=== PATIENT | male | born 1940 | race African-American/Black ===

== ENCOUNTER 2016-10-28 21:07 | Emergency (ER) | payer MEDICARE, OTHER ==
[~2016-10-28 21:07] MED LIST: 1-ME1LIQ PO; HYDR-3533 PO; MEDR4PAK3 PO
[2016-10-28 21:15] VITALS: BP 173/82; PULSE 92; RESP 16; TEMP 98; O2SAT 95
[2016-10-28] MEDS ORDERED: HYDROmorphone HCL PF 1 MG/ML VIAL IV PUSH ONE (21:30)
[2016-10-28] MEDS ORDERED: KETOROLAC TROMETHAMINE 30 MG/ML (IVP) VIAL IV PUSH ONE (21:30)
--- NOTE | 2016-10-28 21:36 | PD ---
HPI Chief Complaint: low back pain Time Seen by Provider: 21:11 Travel History International Travel<30 days: No Contact w/Intl Traveler<30days: No History of Present Illness HPI This is a 75-year-old male who presents to the emergency department with low back pain that's been present for 10 days, constant, severe, radiating down both legs, worse in his right leg, associated with difficulty walking. He says he hasn't been able to walk for 10 days and is only been able to shuffle. Likely has a friend in from out of town he's been helping him get around the house. He denies any urinary or bowel incontinence and has no numbness. Not had any recent injuries. He's been taking Vicoprofen and Tylenol but it's not helping. [facility] Past Medical History Hypertension: Yes Past Surgical History Genitourinary Surgery: Yes (donor nephrectomy) Social History Alcohol Use: No Tobacco Use: No Substance Use: No Allergies-Medications (Allergen,Severity, Reaction): Coded Allergies: No Known Allergies (Unverified , 10/28/16) Reported Meds & Prescriptions Reported Meds & Active Scripts Active Reported Amlodipine (Amlodipine Besylate) 10 Mg Tab 10 Mg PO DAILY Allopurinol 100 Mg Tab 100 Mg PO DAILY Review of Systems Except as stated in HPI: all other systems reviewed are Neg Physical Exam Narrative GENERAL:Well appearing, no acute distress SKIN: Warm and dry. HEAD: Atraumatic. Normocephalic. EYES: Pupils equal and round. No injection or drainage. ENT: Moist mucous membranes NECK: Trachea midline. CARDIOVASCULAR: Regular rate and rhythm. No murmur appreciated. RESPIRATORY: Clear to auscultation. Breath sounds equal bilaterally. GASTROINTESTINAL: Abdomen soft, non-tender, nondistended. MUSCULOSKELETAL: No obvious deformities. No focal lumbar tenderness NEUROLOGICAL: Awake and alert. No obvious cranial nerve deficits. 5 out of 5 strength in the bilateral lower extremities. Sensation is grossly intact. 2+ patellar and bilateral Achilles reflexes. Normal rectal tone. PSYCHIATRIC: Appropriate mood and affect; insight and judgment normal. Data Data Last Documented VS Vital Signs Date Time Temp Pulse Resp B/P Pulse Ox O2 Delivery O2 Flow Rate FiO2 10/28/16 21:15 98.0 92 16 173/82 95 Orders Complete Blood Count With Diff (10/28/16 21:18) Basic Metabolic Panel (Bmp) (10/28/16 21:18) ^ Insert Iv (10/28/16 21:18) Hydromorphone Pf Inj (Dilaudid Pf Inj) (10/28/16 21:30) Ketorolac Inj (Toradol Inj) (10/28/16 21:30) Spine, Lumbar - Ltd (Ap & Lat) (10/28/16 ) Labs Laboratory Tests Test 10/28/16 21:30 White Blood Count 9.3 TH/MM3 Red Blood Count 4.81 MIL/MM3 Hemoglobin 12.6 GM/DL Hematocrit 37.8 % Mean Corpuscular Volume 78.7 FL Mean Corpuscular Hemoglobin 26.1 PG Mean Corpuscular Hemoglobin 33.2 % Concent Red Cell Distribution Width 15.3 % Platelet Count 438 TH/MM3 Mean Platelet Volume 8.8 FL Neutrophils (%) (Auto) 78.0 % Lymphocytes (%) (Auto) 13.2 % Monocytes (%) (Auto) 7.4 % Eosinophils (%) (Auto) 1.1 % Basophils (%) (Auto) 0.3 % Neutrophils # (Auto) 7.2 TH/MM3 Lymphocytes # (Auto) 1.2 TH/MM3 Monocytes # (Auto) 0.7 TH/MM3 Eosinophils # (Auto) 0.1 TH/MM3 Basophils # (Auto) 0.0 TH/MM3 CBC Comment DIFF FINAL Differential Comment MDM Medical Decision Making Medical Screen Exam Complete: Yes Emergency Medical Condition: Yes Interpretation(s) Afebrile, mild tachycardia, hypertensive Last 24 hours Impressions Lumbar Spine X-Ray 10/28/16 0000 Signed Impressions: Service Date/Time: Friday, October 28, 2016 21:35 - CONCLUSION: Chronic changes. K. Phil Luis MD Differential Diagnosis Low back strain, herniated disc, sciatica, cauda equina syndrome, cancer Narrative Course This is a 75-year-old male who presents to the emergency department with low back pain that's been worsening for 10 days. He's been having difficulty walking. He has a normal neurologic exam. He has normal rectal tone and so I doubt cauda equina syndrome. X-ray was obtained which was negative for compression fracture or obvious malignancy. Patient was given Dilaudid and Toradol and was able to stand up and walk a short distance. Patient is appropriate for outpatient management. He will be discharged with pain control. Diagnosis Primary Impression: Low back strain Qualified Code: S39.012A - Low back strain, initial encounter Patient Instructions: General Instructions Additional Instructions: If you develop weakness of your legs, difficulty walking, numbness of her legs or your genital or rectal area, loss of your bowel or bladder, or difficulty urinating return to the emergency department immediately. Followup with your primary care physician in one week if your symptoms have not improved. Med/Other Pt SpecificInfo: Prescription(s) given Scripts Prednisone (48) 10 mg tab Dose Pack 10 Mg Dspk10 Mg PO DIRECTED #1 DSPK Ref 0 Prov:Jody Maldonado MD 10/28/16 Hydrocodone-Acetaminophen (Lortab)5-325 Mg Tab1 Tab PO Q6H PRN (PAIN) #15 TAB Ref 0 Prov:Jody Maldonado MD 10/28/16 Disposition: 01 DISCHARGE HOME Condition: Stable Jody Maldonado MD Oct 28, 2016 21:36
[2016-10-28] MEDS ORDERED: ALLO100T PO (21:48)
[2016-10-28] MEDS ORDERED: AMLO10TA2 PO (21:48)
[2016-10-28 21:55] LABS: AUTOMATED NEUTROPHIL # 7.2 TH/MM3 (1.8-7.7); BASOPHIL % 0.3 % (0.0-2.0); EOSINOPHIL # 0.1 TH/MM3 (0-0.4); EOSINOPHIL % 1.1 % (0.0-4.0); HEMATOCRIT 37.8 % (39.0-51.0); HEMO FLAGS DIFF FINAL; LYMPH % 13.2 % (9.0-44.0); LYMPHOCYTE # 1.2 TH/MM3 (1.0-4.8); MEAN CELL VOLUME 78.7 FL (80.0-100.0); MEAN CORPUSCULAR HEMOGLOBIN 26.1 PG (27.0-34.0); MEAN CORPUSCULAR HGB CONC 33.2 % (32.0-36.0); MONO % 7.4 % (0.0-8.0); PLATELET COUNT 438 TH/MM3 (150-450); RED BLOOD COUNT 4.81 MIL/MM3 (4.50-5.90); RED CELL DISTRIBUTION WIDTH 15.3 % (11.6-17.2); WHITE BLOOD COUNT 9.3 TH/MM3 (4.0-11.0)
--- NOTE | 2016-10-28 21:55 | RADRPT ---
EXAM DATE/TIME: 10/28/2016 21:35 [facility] COMPARISON: No previous studies available for comparison. INDICATIONS : Lower back pain for 10 days with no known injury MEDICAL HISTORY : None. SURGICAL HISTORY : Left kidney removal ENCOUNTER: Initial ACUITY: 1 week PAIN SCORE: 10/10 LOCATION: Right Lumbar spine FINDINGS: No appreciable compression deformities, spondylolisthesis, or spondylolysis is seen. Slight to moder ate degenerative changes are seen within the disc space and facets worse at L4-5. Chronic atheroscler otic calcifications are seen without any definite aneurysmal dilatations for technique. CONCLUSION: Chronic changes. Mercedes Luis MD on October 28, 2016 at 21:53 Board Certified Radiologist. This report was verified electronically.
[2016-10-28] MEDS ORDERED: PRED10PA2 PO (23:09)
[2016-10-28] MEDS ORDERED: HYDR-3533 PO (23:09)
[2016-10-28 23:26] LABS: BICARBONATE 25.5 MEQ/L (21.0-32.0); POTASSIUM 3.9 MEQ/L (3.5-5.1)
== END 2016-10-29 00:35 | disposition home or self-care (01) ==
LOC: NEPC 21:07
DX: S39.012A Strain of muscle, fascia and tendon of lower back, initial encounter (principal); I10 Essential (primary) hypertension; X50.9XXA Other and unspecified overexertion or strenuous movements or postures, initial encounter
CPT/HCPCS: 72100; 80048; 85025; 96374; 96375; 99284; J1170; J1885

== ENCOUNTER 2017-10-12 09:35 | Emergency (ER) | payer MEDICARE, OTHER ==
[~2017-10-12] VITALS: Ht 172.7 cm; Wt 93.0 kg
[~2017-10-12 09:35] MED LIST changes: -1-ME1LIQ PO; +ALLO100T PO; +AMLO10TA2 PO; -MEDR4PAK3 PO; +PRED10PA2 PO
[2017-10-12 09:36] VITALS: BP 217/102; PULSE 96; RESP 20; TEMP 98.5; O2SAT 98
[2017-10-12] MEDS ORDERED: SODIUM CHLOR 0.9% 1000 ML INJ 1,000 ML IV ONE (10:17)
--- NOTE | 2017-10-12 10:24 | PD ---
HPI Chief Complaint: Abdominal Pain Time Seen by Provider: 10:11 Travel History International Travel<30 days: No Contact w/Intl Traveler<30days: No Traveled to known affect area: No History of Present Illness HPI This patient complains of right flank pain. He had the abrupt onset of it one hour ago. He's had kidney stones in the past and this feels the same. He denies hematuria or injury or fever. He has nausea and vomiting. 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 Symptoms moderately severe. No alleviating factors. No exacerbating factors. PFSH Past Medical History Gout: Yes Hypertension: Yes Immunizations Current: Yes Influenza Vaccination: No Past Surgical History Genitourinary Surgery: Yes (donor nephrectomy) Social History Alcohol Use: No Tobacco Use: No Substance Use: No Allergies-Medications (Allergen,Severity, Reaction): Coded Allergies: No Known Allergies (Unverified Adverse Reaction, Unknown, 10/12/17) Reported Meds & Prescriptions Reported Meds & Active Scripts Active Zofran (Ondansetron HCl) 4 Mg Tab 4 Mg PO Q6HR PRN Percocet (Oxycodone-Acetaminophen) 5-325 mg Tab 1 Tab PO Q6H PRN Flomax (Tamsulosin HCl) 0.4 Mg Cap 0.4 Mg PO HS Reported Amlodipine (Amlodipine Besylate) 10 Mg Tab 10 Mg PO DAILY Allopurinol 100 Mg Tab 100 Mg PO DAILY Review of Systems General / Constitutional: No: Fever Eyes: No: Visual changes HENT: No: Headaches Cardiovascular: No: Chest Pain or Discomfort Respiratory: No: Shortness of Breath Gastrointestinal: Positive: Nausea, Vomiting Genitourinary: Positive: Flank Pain, No: Dysuria Musculoskeletal: No: Pain Skin: No Rash Neurologic: No: Weakness Psychiatric: No: Depression Endocrine: No: Polydipsia Hematologic/Lymphatic: No: Easy Bruising Physical Exam Narrative GENERAL: Well-nourished, well-developed patient with right flank pain . SKIN: Focused skin assessment reveals no rash and nodules. Skin is Warm and dry. HEAD: Atraumatic. Normocephalic. EYES: Pupils equal and round. No scleral icterus. No injection or drainage. ENT: No nasal bleeding or discharge. Mucous membranes pink and moist. NECK: Trachea midline. No JVD. CARDIOVASCULAR: Regular rate and rhythm. No murmur appreciated. RESPIRATORY: No accessory muscle use. Clear to auscultation. Breath sounds equal bilaterally. GASTROINTESTINAL: Abdomen soft, non-tender, nondistended. Hepatic and splenic margins not palpable. MUSCULOSKELETAL: No obvious deformities. No clubbing. No cyanosis. No edema. NEUROLOGICAL: Awake and alert. No obvious cranial nerve deficits. Motor grossly within normal limits. Normal speech. PSYCHIATRIC: Appropriate mood and affect; insight and judgment normal. Data Data Last Documented VS Vital Signs Date Time Temp Pulse Resp B/P (MAP) Pulse Ox O2 Delivery O2 Flow Rate FiO2 10/12/17 12:00 16 10/12/17 09:36 98.5 96 217/102 (140) 98 Room Air Orders Orders Complete Blood Count With Diff (10/12/17 10:17) Basic Metabolic Panel (Bmp) (10/12/17 10:17) Urinalysis - C+S If Indicated (10/12/17 10:17) Ct Abd/Pel W/O Iv Contrast (10/12/17 10:17) Ecg Monitoring (10/12/17 10:17) Iv Access Insert/Monitor (10/12/17 10:17) Ondansetron Inj (Zofran Inj) (10/12/17 10:30) Sodium Chloride 0.9% Flush (Ns Flush) (10/12/17 10:30) Sodium Chlor 0.9% 1000 Ml Inj (Ns 1000 M (10/12/17 10:17) Hydromorphone Pf Inj (Dilaudid Pf Inj) (10/12/17 10:30) Urinary Catheter Insert/Apply (10/12/17 12:26) Urine Culture (10/12/17 12:10) Labs Laboratory Tests Test 10/12/17 10:15 10/12/17 12:10 White Blood Count 7.1 TH/MM3 Red Blood Count 4.96 MIL/MM3 Hemoglobin 13.6 GM/DL Hematocrit 41.5 % Mean Corpuscular Volume 83.7 FL Mean Corpuscular Hemoglobin 27.5 PG Mean Corpuscular Hemoglobin Concent 32.8 % Red Cell Distribution Width 14.4 % Platelet Count 200 TH/MM3 Mean Platelet Volume 9.5 FL Neutrophils (%) (Auto) 55.4 % Lymphocytes (%) (Auto) 33.0 % Monocytes (%) (Auto) 7.5 % Eosinophils (%) (Auto) 3.6 % Basophils (%) (Auto) 0.5 % Neutrophils # (Auto) 3.9 TH/MM3 Lymphocytes # (Auto) 2.3 TH/MM3 Monocytes # (Auto) 0.5 TH/MM3 Eosinophils # (Auto) 0.3 TH/MM3 Basophils # (Auto) 0.0 TH/MM3 CBC Comment DIFF FINAL Differential Comment Blood Urea Nitrogen 17 MG/DL Creatinine 1.63 MG/DL Random Glucose 185 MG/DL Calcium Level 9.4 MG/DL Sodium Level 140 MEQ/L Potassium Level 3.8 MEQ/L Chloride Level 107 MEQ/L Carbon Dioxide Level 21.4 MEQ/L Anion Gap 12 MEQ/L Estimat Glomerular Filtration Rate 50 ML/MIN Urine Color YELLOW Urine Turbidity CLEAR Urine pH 5.5 Urine Specific Parker 1.011 Urine Protein TRACE mg/dL Urine Glucose (UA) TRACE mg/dL Urine Ketones NEG mg/dL Urine Occult Blood LARGE Urine Nitrite NEG Urine Bilirubin NEG Urine Urobilinogen LESS THAN 2.0 MG/DL Urine Leukocyte Esterase NEG Urine RBC 71 /hpf Urine WBC 9 /hpf Urine Squamous Epithelial Cells <1 /hpf Urine Bacteria OCC /hpf Urine Hyaline Casts 9 /lpf Urine Mucus FEW /lpf Microscopic Urinalysis Comment CATH-CULTURE IND MDM Medical Decision Making Medical Screen Exam Complete: Yes Emergency Medical Condition: Yes Medical Record Reviewed: Yes Differential Diagnosis Kidney stone, sciatica, lumbar strain Narrative Course I have reviewed the patient's electronic medical record. IV placed CBC is normal Metabolic profile shows a creatinine of 1.63 Urinalysis is clean I gave him IV normal saline IV Zofran and IV Dilaudid for symptom relief CT of abdomen and pelvis shows a 1-2 mm right sided stone with mild hydronephrosis Due to the fact that he has only one kidney and the right side, I discussed with urologist Dr. Mcrae. He is going to see this patient tomorrow in his office. I wrote prescription for the patient included pain and nausea medicine and Flomax. Diagnosis Primary Impression: Kidney stone on right side Additional Impression: Single kidney Additional Instructions: Follow up with urologist tomorrow The patient was warned about potential sedation for the medications they will receive on prescription. Med/Other Pt SpecificInfo: Prescription(s) given Scripts Ondansetron (Zofran) 4 Mg Tab 4 MG PO Q6HR Y for NAUSEA OR VOMITING, #14 TAB 0 Refills Prov: Juan Antonio Baldwin MD 10/12/17 Oxycodone-Acetaminophen (Percocet) 5-325 mg Tab 1 TAB PO Q6H Y for PAIN, #25 TAB 0 Refills Prov: Juan Antonio Baldwin MD 10/12/17 Tamsulosin (Flomax) 0.4 Mg Cap 0.4 MG PO HS for Manage Prostate Problems, #10 CAP 0 Refills Prov: Juan Antonio Baldwin MD 10/12/17 Disposition: 01 DISCHARGE HOME Condition: Stable Juan Antonio Baldwin MD Oct 12, 2017 10:24
[2017-10-12] MEDS ORDERED: SODIUM CHLORIDE 0.9% FLUSH 10 ML FLUSH IVF PRN (10:30)
[2017-10-12] MEDS ORDERED: HYDROmorphone HCL PF 2 MG/ML VIAL IVS ONE (10:30)
[2017-10-12] MEDS ORDERED: ONDANSETRON HCL 4 MG/2 ML VIAL IV PUSH ONE (10:30)
[2017-10-12 10:44] LABS: AUTOMATED NEUTROPHIL # 3.9 TH/MM3 (1.8-7.7); BASOPHIL % 0.5 % (0.0-2.0); EOSINOPHIL # 0.3 TH/MM3 (0-0.4); EOSINOPHIL % 3.6 % (0.0-4.0); HEMATOCRIT 41.5 % (39.0-51.0); HEMOGLOBIN 13.6 GM/DL (13.0-17.0); LYMPHOCYTE # 2.3 TH/MM3 (1.0-4.8); MEAN CELL VOLUME 83.7 FL (80.0-100.0); MEAN CORPUSCULAR HEMOGLOBIN 27.5 PG (27.0-34.0); MEAN CORPUSCULAR HGB CONC 32.8 % (32.0-36.0); MEAN PLATELET VOLUME 9.5 FL (7.0-11.0); MONO % 7.5 % (0.0-8.0); MONOCYTE # 0.5 TH/MM3 (0-0.9); NEUT % 55.4 % (16.0-70.0); PLATELET COUNT 200 TH/MM3 (150-450); RED BLOOD COUNT 4.96 MIL/MM3 (4.50-5.90); RED CELL DISTRIBUTION WIDTH 14.4 % (11.6-17.2); WHITE BLOOD COUNT 7.1 TH/MM3 (4.0-11.0)
[2017-10-12 11:00] LABS: BICARBONATE 21.4 MEQ/L (21.0-32.0); CALCIUM 9.4 MG/DL (8.5-10.1); CREATININE 1.63 MG/DL (0.60-1.30)
--- NOTE | 2017-10-12 11:01 | RADRPT ---
EXAM DATE/TIME: 10/12/2017 10:47 [facility] COMPARISON: No previous studies available for comparison. INDICATIONS : Right flank pain ORAL CONTRAST: No oral contrast ingested. RADIATION DOSE: 8.46 CTDIvol (mGy) MEDICAL HISTORY : Hypertension. SURGICAL HISTORY : Nephrectomy, left. ENCOUNTER: Initial ACUITY: 1 day PAIN SCALE: 5/10 LOCATION: Right flank TECHNIQUE: Volumetric scanning of the abdomen and pelvis was performed. Using automated exposure control and ad justment of the mA and/or kV according to patient size, radiation dose was kept as low as reasonably achievable to obtain optimal diagnostic quality images. DICOM format image data is available electro nically for review and comparison. FINDINGS: LOWER LUNGS: The visualized lower lungs are clear. LIVER: Homogeneous density without lesion. There is no dilation of the biliary tree. There is a densely milagro cified 2 cm gallstone. Gallbladder is contracted. There is mild to moderate hepatic steatosis. SPLEEN: Normal size without lesion. PANCREAS: Within normal limits. KIDNEYS: Status post left nephrectomy with postsurgical changes. The right kidney is normal in size and shape with mild surrounding inflammatory change. There are multiple small 1-3 mm renal calculi. There is mi ld right hydronephrosis with mild dilatation of the right ureter down to the level near the ureterove sicular junction at the site of a distal 1-2 mm calculus. ADRENAL GLANDS: Within normal limits. VASCULAR: There is no aortic aneurysm. BOWEL/MESENTERY: The stomach, small bowel, and colon demonstrate no acute abnormality. There is no free intraperitone al air or fluid. ABDOMINAL WALL: Within normal limits. RETROPERITONEUM: There is no lymphadenopathy. BLADDER: No wall thickening or mass. REPRODUCTIVE: Within normal limits. INGUINAL: There is no lymphadenopathy or hernia. MUSCULOSKELETAL: Within normal limits for patient age. CONCLUSION: 1. 1-2 mm distal right ureteral calculus near the level of the ureterovesicular junction with mild hy dronephrosis and inflammatory change. 2. Multiple small right renal calculi. 3. Status post left nephrectomy. 4. Cholelithiasis. Jassi Negro MD on October 12, 2017 at 10:55 Board Certified Radiologist. This report was verified electronically.
[2017-10-12 12:30] VITALS: BP 198/92; PULSE 88; RESP 18; O2SAT 98
[2017-10-12 12:54] LABS: BACTERIA, URINE OCC /hpf; BILIRUBIN, URINE NEG (NEG); BLOOD, URINE LARGE (NEG); GLUCOSE,URINE TRACE mg/dL (NEG); HYALINE CAST, URINE 9 /lpf (RARE); KETONE, URINE NEG (NEG); MUCUS URINE FEW /lpf (OCC); NITRITE,URINE NEG (NEG); PH, URINE 5.5 (5.0-8.5); SQUAMOUS EPITHELIAL CELL URINE <1 /hpf (0-5); URINE COLOR YELLOW (YELLW/STRAW); URINE LEUKOCYTE ESTERASE NEG (NEG)
[2017-10-12 13:50] VITALS: BP 189/71; PULSE 72; RESP 18; O2SAT 98
[2017-10-12] MEDS ORDERED: ZOFR4TAB PO (14:32)
[2017-10-12] MEDS ORDERED: PERC5TAB12 PO (14:32)
[2017-10-12] MEDS ORDERED: TAMS5CAP PO (14:32)
[2017-10-12 15:20] VITALS: BP 174/69
== END 2017-10-12 15:32 | disposition home or self-care (01) ==
LOC: NEPC 09:35
DX: N13.2 Hydronephrosis with renal and ureteral calculous obstruction (principal); I10 Essential (primary) hypertension; M10.9 Gout, unspecified; Z87.442 Personal history of urinary calculi; Z90.5 Acquired absence of kidney
CPT/HCPCS: 74176; 80048; 81001; 85025; 87086; 96361; 96374; 99285; J1170; J2405; J7030